=== PATIENT | female | born 1995 | race Hispanic/Latino ===

== ENCOUNTER 2022-02-10 10:59 | Outpatient (CLI) | payer BC, OTHER ==
[2022-02-10 23:58] LABS: SARS-CoV-2 PCR by NAA Not Detected (NotDetected)
== END 2022-02-10 11:00 | disposition home or self-care (01) ==
LOC: CSHLAB 10:59
PROVIDERS: ATTEND Family Medicine
DX: Z20.822 Contact with and (suspected) exposure to COVID-19 (principal)
CPT/HCPCS: U0003; U0005

== ENCOUNTER 2022-02-14 19:00 | Inpatient (IN) | payer OTHER ==
[2022-02-15 04:08] VITALS: BMI 39.4
[2022-02-15] MEDS ORDERED: Carboprost 250 MCG/ML AMP IM PRN (04:25)
[2022-02-15] MEDS ORDERED: Ibuprofen 800 MG TAB PO PRN (04:25)
[2022-02-15] MEDS ORDERED: Misoprostol 200 MCG TAB PR PRN (04:25)
[2022-02-15] MEDS ORDERED: Ondansetron PF 4 MG/2 ML Vial IVP PRN (04:25)
[2022-02-15] MEDS ORDERED: Butorphanol Tartrate 1 MG/ML VIAL SLOW IVP PRN (04:25)
[2022-02-15] MEDS ORDERED: Acetaminophen 500 MG TAB PO PRN (04:25)
[2022-02-15] MEDS ORDERED: Methylergonovine 0.2 MG/ML VIAL IM PRN (04:25)
[2022-02-15] MEDS ORDERED: hydrALAZINE 20 MG/ML VIAL SLOW IVP PRN (04:25)
[2022-02-15] MEDS ORDERED: Promethazine HCl 25 MG/ML VIAL IM PRN (04:25)
[2022-02-15] MEDS ORDERED: Diphenoxylate HCl/Atropine Tablet PO PRN (04:25)
[2022-02-15] MEDS ORDERED: Lidocaine 1% (PF) 30 ML VIAL SC PRN (04:25)
[2022-02-15] MEDS ORDERED: NS w/ Oxytocin 30 units 500 ML IV SCH ×2 (04:30)
[2022-02-15] MEDS ORDERED: Misoprostol 100 MCG TAB VAG SCH (04:30)
[2022-02-15 05:18] LABS: Hemoglobin 10.5 g/dL (12.0-15.5); Mean Corpuscular HGB CONC 32.9 g/dL (32.0-36.0); Mean Corpuscular Hemoglobin 26.5 pg (27.0-33.0); Mean Corpuscular Volume 80.6 fl (81.6-98.3); Mean Platelet Volume 11.2 fl (7.4-10.4); Platelet Count 265 10x3/uL (150-450); RBC Distribution Width 15.1 % (11.5-14.5); Red Blood Cell (RBC) Count 3.96 10x6/uL (3.90-5.03); White Blood Cell (WBC) Count 8.5 10x3/uL (3.5-10.5)
[2022-02-15 05:50] LABS: Hep B Surf Ag Non-Reactive S/CO (NonReactive)
[2022-02-15 05:51] LABS: Syphilis Antibody Nonreactive (Nonreactive); Syphilis Antibody Index 0.04 S/CO (<1.00 Non-Reactive)
[2022-02-15] MEDS ORDERED: Dinoprostone 10 MG Suppository VAG SCH (06:00)
[2022-02-15] MEDS ORDERED: Aspirin Chewable 81 MG TAB PO SCH (09:00)
[2022-02-15] MEDS: Misoprostol 100 MCG TAB VAG SCH ×2 (16:49→16:50)
[2022-02-15] MEDS: Lactated Ringer's 1,000 ML IV SCH (16:49)
[2022-02-15] MEDS: Prenatal Vitamin 1 TAB PO SCH (16:50)
[2022-02-16] MEDS: Misoprostol 100 MCG TAB VAG SCH ×4 (07:21→11:47)
[2022-02-16] MEDS: Lactated Ringer's 1,000 ML IV SCH ×2 (07:23→08:35)
[2022-02-16] MEDS: Prenatal Vitamin 1 TAB PO SCH (11:48)
== END 2022-02-16 14:47 | disposition home or self-care (01) | DRG 833 ==
LOC: CSHLD 02-15 03:36
PROVIDERS: ADMIT Family Medicine; ATTEND Family Medicine
PROC: 3E0P7VZ Introduction of Hormone into Female Reproductive, Via Natural or Artificial Opening (ICD-10-PCS; principal; 2022-02-15)
PROC: 3E033VJ Introduction of Other Hormone into Peripheral Vein, Percutaneous Approach (ICD-10-PCS; 2022-02-15)
PROC: 0U7C7ZZ Dilation of Cervix, Via Natural or Artificial Opening (ICD-10-PCS; 2022-02-15)
DX: O99.213 Obesity complicating pregnancy, third trimester (principal); E66.9 Obesity, unspecified; Z3A.39 39 weeks gestation of pregnancy; Z86.16 Personal history of COVID-19; Z79.82 Long term (current) use of aspirin; Z79.899 Other long term (current) drug therapy; O61.0 Failed medical induction of labor; O36.8330 Maternal care for abnormalities of the fetal heart rate or rhythm, third trimester, not applicable or unspecified
CPT/HCPCS: 36415; 85027; 86780; 86850; 86900; 86901; 87340; J2590; J7120

== ENCOUNTER 2022-02-17 19:00 | Inpatient (IN) | payer BC, OTHER ==
[~2022-02-17 19:00] MED LIST: Bupivacaine 0.25% HCL 30 ML VIAL ONE
[2022-02-17] MEDS ORDERED: hydrALAZINE 20 MG/ML VIAL SLOW IVP PRN (20:36)
[2022-02-17] MEDS ORDERED: Ondansetron PF 4 MG/2 ML Vial IVP PRN (20:36)
[2022-02-17] MEDS ORDERED: Ibuprofen 800 MG TAB PO PRN (20:36)
[2022-02-17] MEDS ORDERED: Misoprostol 200 MCG TAB PR PRN (20:36)
[2022-02-17] MEDS ORDERED: Promethazine HCl 25 MG/ML VIAL IM PRN (20:36)
[2022-02-17] MEDS ORDERED: Methylergonovine 0.2 MG/ML VIAL IM PRN (20:36)
[2022-02-17] MEDS ORDERED: Lidocaine 1% (PF) 30 ML VIAL SC PRN (20:36)
[2022-02-17] MEDS ORDERED: Carboprost 250 MCG/ML AMP IM PRN (20:36)
[2022-02-17] MEDS ORDERED: Butorphanol Tartrate 1 MG/ML VIAL SLOW IVP PRN (20:36)
[2022-02-17] MEDS ORDERED: NS w/ Oxytocin 30 units 500 ML IV SCH ×2 (20:45)
[2022-02-17] MEDS ORDERED: Lactated Ringer's 1,000 ML IV SCH (21:30)
[2022-02-17 22:12] LABS: Hemoglobin 9.6 g/dL (12.0-15.5); Mean Corpuscular HGB CONC 32.8 g/dL (32.0-36.0); Mean Corpuscular Hemoglobin 26.9 pg (27.0-33.0); Mean Corpuscular Volume 82.1 fl (81.6-98.3); Mean Platelet Volume 11.1 fl (7.4-10.4); Platelet Count 237 10x3/uL (150-450); RBC Distribution Width 14.9 % (11.5-14.5); Red Blood Cell (RBC) Count 3.57 10x6/uL (3.90-5.03); White Blood Cell (WBC) Count 8.3 10x3/uL (3.5-10.5)
[2022-02-17] MEDS: Misoprostol 100 MCG TAB VAG SCH (22:28)
[2022-02-17 22:39] LABS: Hep B Surf Ag Non-Reactive S/CO (NonReactive); Syphilis Antibody Nonreactive (Nonreactive); Syphilis Antibody Index 0.03 S/CO (<1.00 Non-Reactive)
[2022-02-17 22:47] LABS: HBSAg Index 0.22 S/CO (0-0.99)
[2022-02-18] MEDS: Misoprostol 100 MCG TAB VAG SCH ×6 (02:07→17:58)
[2022-02-18] MEDS: Lactated Ringer's 1,000 ML IV SCH ×4 (09:07→23:23)
[2022-02-19] MEDS ORDERED: Fentanyl 2 mcg/Bup 0.1% Cadd 100 ML ONE (00:27)
[2022-02-19] MEDS ORDERED: Promethazine HCl 25 MG/ML VIAL IM PRN (01:27)
[2022-02-19] MEDS ORDERED: ePHEDrine Sulfate 50 MG/10 ML VIAL SLOW IVP PRN (01:27)
[2022-02-19] MEDS ORDERED: diphenhydrAMINE 50 MG/ML VIAL IVP PRN (01:27)
[2022-02-19] MEDS ORDERED: Acetaminophen 325 MG TAB PO PRN (01:27)
[2022-02-19] MEDS ORDERED: Naloxone HCl 0.4 mg/ml Vial IVP PRN ×2 (01:27)
[2022-02-19] MEDS ORDERED: Lactated Ringer's 500 ML IV PRN (01:27)
[2022-02-19] MEDS ORDERED: Ondansetron PF 4 MG/2 ML Vial IVP PRN ×2 (01:27→12:15)
[2022-02-19] MEDS ORDERED: Moisturizing Cream (Eucerin) 113 GM JAR TOP PRN (01:27)
[2022-02-19] MEDS ORDERED: Fentanyl 2 mcg/Bupivacaine 0.1% Cassette 100 ML EPIDURAL SCH (01:30)
[2022-02-19] MEDS ORDERED: Communication Order-Pharmacy FS SCH (01:30)
[2022-02-19] MEDS ORDERED: Misoprostol 200 MCG TAB ONE (08:42)
[2022-02-19] MEDS ORDERED: Methylergonovine 0.2 MG/ML VIAL ONE ×2 (08:42→10:51)
[2022-02-19] MEDS ORDERED: Carboprost 250 MCG/ML AMP ONE ×2 (08:43→10:51)
[2022-02-19 10:07] LABS: RapidComm Collect By NRSE; pH (Cord, venous) 7.288 (7.250-7.350)
[2022-02-19 10:08] LABS: RapidComm Collect By NURSE
[2022-02-19] MEDS ORDERED: Silver Nitrate Application 1 EACH ONE (10:24)
[2022-02-19] MEDS ORDERED: Silver Nitrate Application 1 EACH TOP SCH (11:00)
[2022-02-19] MEDS: Misoprostol 100 MCG TAB VAG SCH ×2 (11:11→16:36)
[2022-02-19] MEDS: Lactated Ringer's 1,000 ML IV SCH (11:11)
[2022-02-19] MEDS ORDERED: Lanolin Ointment 7 GM TUBE TOP PRN (12:15)
[2022-02-19] MEDS ORDERED: Milk Of Magnesia 30 ML UDCUP PO PRN (12:15)
[2022-02-19] MEDS ORDERED: Boostrix 0.5 ML (Tdap) VIAL IM ONE (12:15)
[2022-02-19] MEDS ORDERED: Benzocaine-Menthol 82.5 ML CAN TOP PRN (12:15)
[2022-02-19] MEDS ORDERED: hydrALAZINE 20 MG/ML VIAL SLOW IVP PRN (12:15)
[2022-02-19] MEDS ORDERED: NS w/ Oxytocin 30 units 500 ML IV SCH (12:15)
[2022-02-19] MEDS ORDERED: Bisacodyl 10 MG SUPP PR PRN (12:15)
[2022-02-19] MEDS ORDERED: Preparation H Ointment 28 GM TUBE PR PRN (12:15)
[2022-02-19] MEDS ORDERED: Misoprostol 200 MCG TAB PR PRN (12:15)
[2022-02-19] MEDS: Ibuprofen 800 MG TAB PO SCH ×2 (12:36→21:19)
[2022-02-19 14:12] VITALS: BMI 40.9
[2022-02-19] MEDS: Ferrous Sulfate 325 MG TAB PO SCH (18:45)
[2022-02-19] MEDS: Docusate 100 MG CAP PO SCH (21:19)
[2022-02-20] MEDS: Ibuprofen 800 MG TAB PO SCH ×3 (05:05→22:07)
[2022-02-20] MEDS: Ferrous Sulfate 325 MG TAB PO SCH ×2 (08:49→18:29)
[2022-02-20] MEDS: Docusate 100 MG CAP PO SCH ×2 (08:49→22:08)
[2022-02-20] MEDS: Prenatal Vitamin 1 TAB PO SCH (08:49)
[2022-02-21] MEDS: Ibuprofen 800 MG TAB PO SCH (06:08)
[2022-02-21] MEDS: Ferrous Sulfate 325 MG TAB PO SCH (08:03)
[2022-02-21] MEDS: Prenatal Vitamin 1 TAB PO SCH (08:03)
[2022-02-21 08:49] VITALS: BP 129/71; TEMP 98
== END 2022-02-21 10:20 | disposition home or self-care (01) | DRG 807 ==
LOC: CSHLD 19:29 → CSHPP 02-19 13:15
PROVIDERS: ADMIT Family Medicine; ATTEND Family Medicine
PROC: 3E0P7VZ Introduction of Hormone into Female Reproductive, Via Natural or Artificial Opening (ICD-10-PCS; 2022-02-18)
PROC: 3E033VJ Introduction of Other Hormone into Peripheral Vein, Percutaneous Approach (ICD-10-PCS; 2022-02-18)
PROC: 10E0XZZ Delivery of Products of Conception, External Approach (ICD-10-PCS; principal; 2022-02-19)
PROC: 0UQG7ZZ Repair Vagina, Via Natural or Artificial Opening (ICD-10-PCS; 2022-02-19)
PROC: 0UQMXZZ Repair Vulva, External Approach (ICD-10-PCS; 2022-02-19)
DX: O99.214 Obesity complicating childbirth (principal); Z37.0 Single live birth; E66.9 Obesity, unspecified; Z3A.39 39 weeks gestation of pregnancy; Z86.16 Personal history of COVID-19; Z79.82 Long term (current) use of aspirin; O42.02 Full-term premature rupture of membranes, onset of labor within 24 hours of rupture; O77.0 Labor and delivery complicated by meconium in amniotic fluid; O61.0 Failed medical induction of labor; O69.81X0 Labor and delivery complicated by cord around neck, without compression, not applicable or unspecified; O71.4 Obstetric high vaginal laceration alone
CPT/HCPCS: 51702; 82805; 85027; 86780; 86850; 86900; 86901; 87340; J1200; J2590; J7120; S0020